=== PATIENT | male | born 1995 | race African-American/Black ===

== ENCOUNTER 2017-08-23 09:37 | Emergency (ER) | payer OTHER, MEDICAID | END 2017-08-23 10:11 | disposition home or self-care (01) | LOC: M ED 09:37 | DX: L25.0 Unspecified contact dermatitis due to cosmetics (principal); R56.9 Unspecified convulsions; F33.9 Major depressive disorder, recurrent, unspecified; Z86.14 Personal history of Methicillin resistant Staphylococcus aureus infection | CPT/HCPCS: 99282 ==

== ENCOUNTER 2017-11-17 04:08 | Observation (INO) | payer OTHER ==
[2017-11-17] MEDS ORDERED: LORazepam 2 MG/ML VIAL (J2060) As Ordered (04:41)
[2017-11-17] MEDS: LORazepam 2 MG/ML VIAL (J2060) IV (04:47)
[2017-11-17 05:03] LABS: BASO % 0.4 % (0.0-1.0); EOS % 0.5 % (0.0-3.0); HEMATOCRIT 48.8 % (42.0-52.0); HEMOGLOBIN 16.6 g/dl (13.5-17.5); IMMATURE GRANULOCYTE % 0.4 % (0-3.0); LYMPH # 2.2 10^3/uL (1.5-6.5); LYMPH % 39.1 % (24.0-44.0); MEAN CORPUSCULAR HEMOGLOBIN 29.9 pg (27.0-33.0); MEAN CORPUSCULAR VOLUME 87.9 fl (80.0-96.0); MONO # 0.4 10^3/uL (0.0-0.8); MONO % 6.8 % (0.0-5.0); NEUTROPHILS # 2.9 10^3/uL (1.8-7.7); NEUTROPHILS % 52.8 % (36.0-66.0); PLATELET COUNT, AUTOMATED 303 10^3/uL (150-450); RED BLOOD COUNT 5.55 10^6/uL (4.30-6.10); RED CELL DISTRIBUTION WIDTH 13.1 % (11.5-14.5); WHITE BLOOD COUNT 5.6 10^3/uL (4.0-10.0)
[2017-11-17 05:21] LABS: ALBUMIN 4.6 GM/DL (3.2-5.2); ALBUMIN/GLOBULIN RATIO 1.15 (1.00-1.93); ALKALINE PHOSPHATASE 70 U/L (45-117); ALT/SGPT 57 U/L (12-78); ANION GAP 13 MEQ/L (8-16); AST/SGOT 26 U/L (7-37); BILIRUBIN,DIRECT < 0.1 MG/DL (0.0-0.2); BILIRUBIN,TOTAL 0.3 MG/DL (0.2-1.0); BLOOD UREA NITROGEN 7 MG/DL (7-18); CALCIUM LEVEL 9.6 MG/DL (8.5-10.1); CARBON DIOXIDE LEVEL 23 MEQ/L (21-32); CHLORIDE LEVEL 106 MEQ/L (98-107); CREATININE FOR GFR 0.95 MG/DL (0.70-1.30); ETHYL ALCOHOL (ETHANOL) 0.145 % (0.000-0.010); GLOMERULAR FILTRATION RATE > 60.0 (>60); GLUCOSE, FASTING 89 MG/DL (70-100); MAGNESIUM LEVEL 2.1 MG/DL (1.8-2.4); POTASSIUM SERUM 3.7 MEQ/L (3.5-5.1); SODIUM LEVEL 142 MEQ/L (136-145); TOTAL PROTEIN 8.6 GM/DL (6.4-8.2)
[2017-11-17 06:07] LABS: KETONE, URINE AUTO RFX NEGATIVE (NEGATIVE); MUCUS, URINE RFX SMALL (NEGATIVE); NITRITE, URINE AUTO RFX NEGATIVE (NEGATIVE); RBC, URINE AUTO RFX 2 /HPF (0-3); SPECIFIC GRAVITY UR AUTO RFX 1.013 (1.002-1.035); SQUAM EPITHELIAL CELL UR AURFX 0 /HPF (0-6); WBC, URINE AUTO RFX 5 /HPF (0-3)
[2017-11-17 06:14] LABS: LEUKOCYTE ESTERASE UR AUTO RFX TRACE (NEGATIVE)
[2017-11-17 06:15] LABS: AMPHETAMINES LEVEL URINE NEGATIVE (NEGATIVE); BARBITURATES URINE NEGATIVE (NEGATIVE); BENZODIAZEPINES URINE NEGATIVE (NEGATIVE); CANNABINOIDS URINE NEGATIVE (NEGATIVE); COCAINE METABOLITE URINE NEGATIVE (NEGATIVE); METHADONE URINE NEGATIVE (NEGATIVE); OPIATES URINE NEGATIVE (NEGATIVE); PHENCYCLIDINE URINE NEGATIVE (NEGATIVE)
[2017-11-17] MEDS: NS 1,000 ML IV ×2 (06:30→10:22)
[2017-11-17] MEDS: levETIRAcetam INJection 1,000 MG in D5W 100 ML IV (08:13)
[2017-11-17] MEDS ORDERED: D5W/0.45% SODIUM CHLORIDE 1,000 ML IV (09:44)
[2017-11-17] MEDS ORDERED: ONDANSETRON 4MG/2ML VIAL (J2405) IV (09:45)
[2017-11-17] MEDS ORDERED: ACETAMINOPHEN TAB 650MG DOSE (2X325MG) PO (09:45)
[2017-11-17] MEDS ORDERED: LORazepam 2 MG/ML VIAL (J2060) IV (10:00)
[2017-11-17] MEDS: D5W/0.45% SODIUM CHLORIDE 1,000 ML IV (11:33)
[2017-11-17] MEDS: NICOTINE POLACRILEX 2 MG GUM PO (16:23)
[2017-11-17] MEDS: HEPARIN SOD (PORCINE) 5000 UNITS/ML VIAL SC ×2 (16:28→20:41)
[2017-11-17] MEDS: NICOTINE 7 MG/24 HR TRANSDERMAL TD (16:30)
[2017-11-17] MEDS: levETIRAcetam 250MG TABLET (KEPPRA) PO (20:41)
[2017-11-18 11:01] LABS: PROLACTIN 13.9 NG/ML (2.1-17.7)
[2017-11-20 10:17] LABS: LEVETIRACETAM (KEPPRA) None Detected ug/mL (10.0-40.0)
== END 2017-11-17 22:30 | disposition left against medical advice (07) ==
LOC: M ED 04:08 → M ED INP 09:44 → M MS5PR 13:35
DX: Z53.21 Procedure and treatment not carried out due to patient leaving prior to being seen by health care provider (principal); R56.9 Unspecified convulsions; F10.10 Alcohol abuse, uncomplicated; F17.210 Nicotine dependence, cigarettes, uncomplicated; F64.8 Other gender identity disorders; Z79.899 Other long term (current) drug therapy; F40.01 Agoraphobia with panic disorder; F32.9 Major depressive disorder, single episode, unspecified
CPT/HCPCS: J1953

== ENCOUNTER 2018-02-21 01:52 | Emergency (ER) | payer OTHER ==
[2018-02-21] MEDS: CHARCOAL ACTIVATED LIQUID 25 GM/120 ML BTL PO (02:15)
[2018-02-21 02:28] LABS: BASO % 0.3 % (0.0-1.0); EOS % 0.5 % (0.0-3.0); HEMATOCRIT 47.2 % (42.0-52.0); HEMOGLOBIN 16.2 g/dl (13.5-17.5); IMMATURE GRANULOCYTE % 0.3 % (0-3.0); LYMPH # 3.5 10^3/uL (1.5-6.5); LYMPH % 44.7 % (24.0-44.0); MEAN CORPUSCULAR HEMOGLOBIN 30.8 pg (27.0-33.0); MEAN CORPUSCULAR HGB CONC 34.3 g/dl (32.0-36.5); MEAN CORPUSCULAR VOLUME 89.7 fl (80.0-96.0); MONO # 0.4 10^3/uL (0.0-0.8); MONO % 5.4 % (0.0-5.0); NEUTROPHILS # 3.8 10^3/uL (1.8-7.7); NEUTROPHILS % 48.8 % (36.0-66.0); PLATELET COUNT, AUTOMATED 332 10^3/uL (150-450); RED BLOOD COUNT 5.26 10^6/uL (4.30-6.10); RED CELL DISTRIBUTION WIDTH 12.6 % (11.5-14.5); WHITE BLOOD COUNT 7.8 10^3/uL (4.0-10.0)
[2018-02-21 02:53] LABS: ALBUMIN 4.3 GM/DL (3.2-5.2); ALBUMIN/GLOBULIN RATIO 1.26 (1.00-1.93); ALKALINE PHOSPHATASE 76 U/L (45-117); ALT/SGPT 48 U/L (12-78); ANION GAP 9 MEQ/L (8-16); AST/SGOT 16 U/L (7-37); BILIRUBIN,DIRECT < 0.1 MG/DL (0.0-0.2); BILIRUBIN,TOTAL 0.2 MG/DL (0.2-1.0); BLOOD UREA NITROGEN 6 MG/DL (7-18); CALCIUM LEVEL 8.9 MG/DL (8.5-10.1); CARBON DIOXIDE LEVEL 28 MEQ/L (21-32); CHLORIDE LEVEL 105 MEQ/L (98-107); CPK CREATINE PHOSPHOKINASE 483 U/L (39-308); CREATININE FOR GFR 1.02 MG/DL (0.70-1.30); ETHYL ALCOHOL (ETHANOL) 0.178 % (0.000-0.010); GLOMERULAR FILTRATION RATE > 60.0 (>60); GLUCOSE, FASTING 111 MG/DL (70-100); POTASSIUM SERUM 3.4 MEQ/L (3.5-5.1); SALICYLATE LEVEL 1.8 MG/DL (5.0-30.0); SODIUM LEVEL 142 MEQ/L (136-145); TOTAL PROTEIN 7.7 GM/DL (6.4-8.2)
[2018-02-21 02:54] LABS: ACETAMINOPHEN LEVEL < 2.0 UG/ML (10.0-30.0)
[2018-02-21 04:06] LABS: AMPHETAMINES LEVEL URINE NEGATIVE (NEGATIVE); BARBITURATES URINE NEGATIVE (NEGATIVE); BENZODIAZEPINES URINE NEGATIVE (NEGATIVE); CANNABINOIDS URINE NEGATIVE (NEGATIVE); COCAINE METABOLITE URINE NEGATIVE (NEGATIVE); METHADONE URINE NEGATIVE (NEGATIVE); OPIATES URINE NEGATIVE (NEGATIVE); PHENCYCLIDINE URINE NEGATIVE (NEGATIVE)
[2018-02-21] MEDS: ONDANSETRON 4 MG ORAL DISINTEGRATING TAB (Q0162 PER 1MG) PO (07:00)
== END 2018-02-21 10:36 | disposition home or self-care (01) ==
LOC: M ED 01:52
DX: F10.129 Alcohol abuse with intoxication, unspecified (principal); F91.9 Conduct disorder, unspecified; Z79.899 Other long term (current) drug therapy
CPT/HCPCS: Q0162

== ENCOUNTER 2018-03-10 23:56 | Emergency (ER) | payer OTHER ==
[2018-03-11] MEDS ORDERED: ACETAMINOPHEN 325 MG TAB As Ordered (01:14)
[2018-03-11] MEDS: levETIRAcetam 250MG TABLET (KEPPRA) PO (01:17)
[2018-03-11 01:19] LABS: ANION GAP 7 MEQ/L (8-16); BLOOD UREA NITROGEN 11 MG/DL (7-18); CALCIUM LEVEL 9.1 MG/DL (8.5-10.1); CARBON DIOXIDE LEVEL 27 MEQ/L (21-32); CHLORIDE LEVEL 106 MEQ/L (98-107); CREATININE FOR GFR 1.07 MG/DL (0.70-1.30); ETHYL ALCOHOL (ETHANOL) < 0.003 % (0.000-0.010); GLOMERULAR FILTRATION RATE > 60.0 (>60); GLUCOSE, FASTING 98 MG/DL (70-100); POTASSIUM SERUM 4.5 MEQ/L (3.5-5.1); SODIUM LEVEL 140 MEQ/L (136-145)
[2018-03-11 01:22] LABS: LACTIC ACID SEPSIS PROTOCOL 1.3 MMOL/L (0.4-2.0)
[2018-03-11] MEDS: ACETAMINOPHEN 325 MG TAB PO (01:22)
== END 2018-03-11 02:16 | disposition home or self-care (01) ==
LOC: M ED 23:56
DX: G40.909 Epilepsy, unspecified, not intractable, without status epilepticus (principal); Z79.899 Other long term (current) drug therapy
CPT/HCPCS: 80320

== ENCOUNTER 2018-06-15 07:44 | Emergency (ER) | payer OTHER ==
[2018-06-15] MEDS: levETIRAcetam 250MG TABLET (KEPPRA) PO (09:07)
[2018-06-15] MEDS: ACETAMINOPHEN TAB 650MG DOSE (2X325MG) PO (09:07)
== END 2018-06-15 09:50 | disposition home or self-care (01) ==
LOC: M ED 07:44
DX: R41.0 Disorientation, unspecified (principal); G40.909 Epilepsy, unspecified, not intractable, without status epilepticus; Z91.19 Patient's noncompliance with other medical treatment and regimen; F10.10 Alcohol abuse, uncomplicated
CPT/HCPCS: 70450

== ENCOUNTER 2018-10-28 13:32 | Emergency (ER) | payer OTHER ==
[~2018-10-28] VITALS: Ht 172.7 cm; Wt 100.0 kg
[~2018-10-28 13:32] MED LIST: DEPA1TAB3 PO; KEFL500C17 PO; KEPP1TAB2 PO; NICO21PAT TD; SERT-141 PO; TRAZO50TA PO; ZONE1CAP PO
[2018-10-28] MEDS ORDERED: ESTR0.5T3 PO (13:43)
[2018-10-28] MEDS ORDERED: SPIR100T3 PO (13:43)
[2018-10-28] MEDS ORDERED: NS 1,000 ML IV ONE (14:00)
--- NOTE | 2018-10-28 14:16 | REP ---
CHEST, SINGLE VIEW: There is no evidence of acute infiltrate. No pleural effusion is seen. The heart is normal in size. The mediastinal silhouette is unremarkable. The visualized osseous structures are intact. IMPRESSION: No acute pulmonary disease. Electronically Signed by Viraj Quintero MD 10/28/2018 03:31 P
[2018-10-28 14:43] LABS: BASO % 0.4 % (0.0-1.0); EOS % 0.6 % (0.0-3.0); HEMATOCRIT 44.6 % (42.0-52.0); HEMOGLOBIN 15.4 g/dl (13.5-17.5); LYMPH # 1.5 10^3/uL (1.5-6.5); LYMPH % 32.3 % (24.0-44.0); MEAN CORPUSCULAR HEMOGLOBIN 30.9 pg (27.0-33.0); MEAN CORPUSCULAR HGB CONC 34.5 g/dl (32.0-36.5); MEAN CORPUSCULAR VOLUME 89.4 fl (80.0-96.0); MONO # 0.4 10^3/uL (0.0-0.8); MONO % 9.3 % (0.0-5.0); NEUTROPHILS # 2.7 10^3/uL (1.8-7.7); NEUTROPHILS % 57.2 % (36.0-66.0); PLATELET COUNT, AUTOMATED 287 10^3/uL (150-450); RED BLOOD COUNT 4.99 10^6/uL (4.30-6.10); WHITE BLOOD COUNT 4.7 10^3/uL (4.0-10.0)
[2018-10-28 14:49] LABS: INFLUENZA A AMPLIFICATION NEGATIVE (NEGATIVE); INFLUENZA B AMPLIFICATION NEGATIVE (NEGATIVE)
--- NOTE | 2018-10-28 14:55 | REP ---
CT Head without contrast HISTORY: Seizure COMPARISON: 06/15/2018 There is no intraparenchymal hemorrhage, acute infarct, mass or midline shift. The ventricular system is normal in appearance. There is no extra cerebral collection. There is no fracture. The visualized sinuses are clear. IMPRESSION: There is no intracranial lesion. Electronically Signed by Yang Fisher MD 10/28/2018 02:46 P
[2018-10-28 15:26] LABS: ACETAMINOPHEN LEVEL < 2.0 UG/ML (10.0-30.0); ALBUMIN 3.9 GM/DL (3.2-5.2); ALT/SGPT 49 U/L (12-78); BILIRUBIN,DIRECT 0.2 MG/DL (0.0-0.2); BILIRUBIN,TOTAL 0.7 MG/DL (0.2-1.0); BLOOD UREA NITROGEN 10 MG/DL (7-18); CALCIUM LEVEL 9.2 MG/DL (8.5-10.1); CARBON DIOXIDE LEVEL 29 MEQ/L (21-32); CHLORIDE LEVEL 103 MEQ/L (98-107); CPK CREATINE PHOSPHOKINASE 334 U/L (39-308); CREATININE FOR GFR 0.93 MG/DL (0.70-1.30); ETHYL ALCOHOL (ETHANOL) < 0.003 % (0.000-0.010); GLOMERULAR FILTRATION RATE > 60.0 (>60); GLUCOSE, FASTING 92 MG/DL (70-100); MB/CK RELATIVE INDEX 0.36 (< OR =4); SALICYLATE LEVEL < 1.7 MG/DL (5.0-30.0); SODIUM LEVEL 138 MEQ/L (136-145); TOTAL PROTEIN 7.3 GM/DL (6.4-8.2); TROPONIN I < 0.02 NG/ML (< 0.10)
[2018-10-28 15:33] LABS: OSMOLALITY SERUM 292 MOSM/KG (275-295)
[2018-10-28 15:48] LABS: AMPHETAMINES LEVEL URINE NEGATIVE (NEGATIVE); BARBITURATES URINE NEGATIVE (NEGATIVE); BENZODIAZEPINES URINE NEGATIVE (NEGATIVE); CANNABINOIDS URINE NEGATIVE (NEGATIVE); COCAINE METABOLITE URINE NEGATIVE (NEGATIVE); METHADONE URINE NEGATIVE (NEGATIVE); OPIATES URINE NEGATIVE (NEGATIVE); PHENCYCLIDINE URINE NEGATIVE (NEGATIVE)
[2018-10-28] MEDS ORDERED: KEPP10002 PO (16:40)
[2018-10-28] MEDS ORDERED: levETIRAcetam 250MG TABLET (KEPPRA) PO ONE (16:45)
[2018-10-28] MEDS ORDERED: levETIRAcetam **XR** 500 MG TABLET PO ONE (16:45)
[2018-10-28 17:10] VITALS: BP 129/56
--- NOTE | 2018-10-28 22:11 | ECGEPIP ---
Stationary ECG Study [facility] - ED Test Date: 2018-10-28 Pat Name: NORMA LARRY Department: Room: - Gender: M Portrait Artist: JMerline : 1995 Requested By: BELEN Amaya Order Number: [id number] Reading MD: Amrik Silva Measurements Intervals [place] Rate: 69 P: 37 OR: 159 QRS: 23 QRSD: 98 T: 20 QT: 370 QTc: 398 Interpretive Statements SINUS RHYTHM WITH MARKED SINUS ARRHYTHMIA NSTTW ABNORMALITIES SIMILAR TO 02/21/18 Electronically Signed On 10-28-2018 22:11:00 EDT by Amrik Silva
== END 2018-10-28 17:15 | disposition home or self-care (01) ==
LOC: EDSEX 13:32 → M ED 13:32 → EDBD 13:32 → M ED 17:15
DX: G40.909 Epilepsy, unspecified, not intractable, without status epilepticus (principal); R94.31 Abnormal electrocardiogram [ECG] [EKG]; F17.200 Nicotine dependence, unspecified, uncomplicated; Z79.890 Hormone replacement therapy; Z79.899 Other long term (current) drug therapy
CPT/HCPCS: 70450; 71045; 80048; 80076; 80180; 80307; 81001; 82140; 82550; 82553; 83605; 83930; 84443; 85025; 87502; 93005; 93041; 94760; 96360; 96361; 99285; G0480

== ENCOUNTER 2019-06-23 16:14 | Emergency (ER) | payer OTHER ==
[~2019-06-23] VITALS: Ht 175.3 cm; Wt 97.4 kg
[~2019-06-23 16:14] MED LIST changes: +ESTR0.5T3 PO; +KEPP10002 PO; +SPIR100T3 PO; +TRAZ1TAB10 PO; -TRAZO50TA PO
[2019-06-23] MEDS ORDERED: SPIR100T3 PO (16:33)
[2019-06-23] MEDS ORDERED: NS 1,000 ML IV ONE (16:45)
[2019-06-23] MEDS ORDERED: levETIRAcetam INJection 1,000 MG in D5W 100 ML IV ONE (17:00)
[2019-06-23 17:28] LABS: BLOOD UREA NITROGEN 10 MG/DL (7-18); CALCIUM LEVEL 8.9 MG/DL (8.5-10.1); CARBON DIOXIDE LEVEL 27 MEQ/L (21-32); CHLORIDE LEVEL 108 MEQ/L (98-107); CREATININE FOR GFR 0.85 MG/DL (0.70-1.30); GLOMERULAR FILTRATION RATE > 60.0 (>60); GLUCOSE, FASTING 116 MG/DL (70-100); SODIUM LEVEL 139 MEQ/L (136-145)
[2019-06-23] MEDS: levETIRAcetam INJection 500 MG in D5W MINI-BAG PLUS 100 ML IV SCH (17:45)
[2019-06-23] MEDS ORDERED: levETIRAcetam INJection 750 MG in D5W 100 ML IV ONE (18:00)
[2019-06-23 18:33] VITALS: BP 129/56
== END 2019-06-23 18:34 | disposition home or self-care (01) ==
LOC: EDSEX 16:14 → EDBD 16:14 → M ED 16:14
DX: G40.909 Epilepsy, unspecified, not intractable, without status epilepticus (principal); Z91.14 Patient's other noncompliance with medication regimen; Z79.899 Other long term (current) drug therapy
CPT/HCPCS: 80048; 96365; 99284; J1953

== ENCOUNTER 2019-10-06 01:08 | Emergency (ER) | payer OTHER ==
[~2019-10-06] VITALS: Ht 175.3 cm; Wt 93.2 kg
[2019-10-06] MEDS ORDERED: BUPIVACAINE LIPOSOME/PF 1.3% 20ML VIAL (13.3MG/ML)(EXPAREL)(C9290 PER1MG) INFIL ONE (05:00)
[2019-10-06] MEDS ORDERED: AUGM500T34 PO (06:25)
[2019-10-06] MEDS ORDERED: FLAG500T PO (06:25)
[2019-10-06 06:40] VITALS: BP 121/89
== END 2019-10-06 06:46 | disposition home or self-care (01) ==
LOC: M ED 01:08
DX: K08.89 Other specified disorders of teeth and supporting structures (principal); R56.9 Unspecified convulsions; Z79.899 Other long term (current) drug therapy
CPT/HCPCS: 64400; 99283; C9290

== ENCOUNTER → 2019-10-28 | Outpatient (REF) | payer OTHER ==
[~2019-10-28] MED LIST changes: +AUGM500T34 PO; +FLAG500T PO
[2019-10-28 21:32] LABS: APPEARANCE, URINE CLEAR (CLEAR); BACTERIA, URINE AUTO NEGATIVE (NEGATIVE); BILIRUBIN, URINE AUTO NEGATIVE (NEGATIVE); BLOOD, URINE BLOOD NEGATIVE (NEGATIVE); COLOR, URINE YELLOW (YELLOW); GLUCOSE, URINE (UA) AUTO NEGATIVE (NEGATIVE); KETONE, URINE AUTO TRACE mg/dL (NEGATIVE); LEUKOCYTE ESTERASE, URINE AUTO TRACE (NEGATIVE); MUCUS, URINE SMALL (NEGATIVE); NITRITE, URINE AUTO NEGATIVE (NEGATIVE); PROTEIN, URINE AUTO NEGATIVE (NEGATIVE); RBC, URINE AUTO 0 /HPF (0-3); SPECIFIC GRAVITY URINE AUTO 1.014 (1.002-1.035); SQUAMOUS EPITHELIAL CELL UR AU 0 /HPF (0-6); UROBILINOGEN, URINE AUTO 0.2 mg/dL (0.0-2.0); WBC, URINE AUTO 1 /HPF (0-3)
[2019-10-28 23:08] LABS: CHLAMYDIA DNA AMPLIFICATION NEGATIVE (NEGATIVE); GC DNA AMPLIFICATION NEGATIVE (NEGATIVE)
== END ==
LOC: M LAB REF 21:15
PROVIDERS: ATTEND Physician Assistant
DX: N39.0 Urinary tract infection, site not specified (principal); Z20.2 Contact with and (suspected) exposure to infections with a predominantly sexual mode of transmission

== ENCOUNTER → 2020-03-09 | Outpatient (REF) | payer OTHER, MEDICAID ==
[2020-04-19 11:56] LABS: CHLAMYDIA DNA AMPLIFICATION NEGATIVE (NEGATIVE); GC DNA AMPLIFICATION NEGATIVE (NEGATIVE)
[2020-04-23 12:04] LABS: HIV 1&2 SCREEN CENTAUR NEGATIVE (NEGATIVE)
== END ==
LOC: M LAB REF 14:58
PROVIDERS: ATTEND Nurse Practitioner Family
DX: Z11.3 Encounter for screening for infections with a predominantly sexual mode of transmission (principal)

== ENCOUNTER → 2020-11-03 | Outpatient (REF) | payer OTHER, MEDICAID ==
[2020-11-03 14:13] LABS: ALBUMIN 4.2 GM/DL (3.2-5.2); ALT/SGPT 38 U/L (12-78); BILIRUBIN,TOTAL 0.3 MG/DL (0.2-1.0); BLOOD UREA NITROGEN 13 MG/DL (7-18); CALCIUM LEVEL 9.7 MG/DL (8.5-10.1); CARBON DIOXIDE LEVEL 26 MEQ/L (21-32); CHLORIDE LEVEL 106 MEQ/L (98-107); CHOLESTEROL LEVEL 193 MG/DL (<200); CHOLESTEROL RISK RATIO 2.757 (<5); CREATININE FOR GFR 0.67 MG/DL (0.70-1.30); GLOMERULAR FILTRATION RATE > 60.0 (>60); GLUCOSE, FASTING 98 MG/DL (70-100); HDL CHOLESTEROL 70 MG/DL (>40); LDL CHOLESTEROL 108 MG/DL (<100); NON-HDL-C 123 MG/DL; SODIUM LEVEL 139 MEQ/L (136-145); TESTOSTERONE 483 NG/DL (241-827); TOTAL PROTEIN 7.8 GM/DL (6.4-8.2); TRIGLYCERIDES LEVEL 73 MG/DL (<150)
[2020-11-03 14:51] LABS: HEPATITIS C VIRUS ABY INDEX < 0.0 INDEX (<0.8)
[2020-11-03 14:52] LABS: HIV 1&2 SCREEN CENTAUR NEGATIVE (NEGATIVE)
== END ==
LOC: M LAB REF 11:57
PROVIDERS: ATTEND Family Medicine Addiction Medicine
DX: Z00.01 Encounter for general adult medical examination with abnormal findings (principal)

== ENCOUNTER → 2024-07-09 | Outpatient (REF) | payer OTHER, MEDICAID ==
[2024-07-10 10:22] LABS: BASO % 0.4 % (0.0-1.0); EOS % 0.1 % (0.0-3.0); HEMATOCRIT 38.7 % (42.0-52.0); LYMPH # 1.4 10^3/uL (1.5-5.0); LYMPH % 19.5 % (24.0-44.0); MEAN CORPUSCULAR HEMOGLOBIN 30.1 pg (27.0-33.0); MEAN CORPUSCULAR HGB CONC 33.6 g/dl (32.0-36.5); MEAN CORPUSCULAR VOLUME 89.6 fl (80.0-96.0); MONO # 0.4 10^3/uL (0.0-0.8); MONO % 5.5 % (2.0-8.0); NEUTROPHILS # 5.4 10^3/uL (1.5-8.5); NEUTROPHILS % 74.1 % (36.0-66.0); PLATELET COUNT, AUTOMATED 399 10^3/uL (150-450); RED BLOOD COUNT 4.32 10^6/uL (4.30-6.10); WHITE BLOOD COUNT 7.2 10^3/uL (4.0-10.0)
[2024-07-10 10:25] LABS: ALBUMIN 3.8 G/DL (3.2-5.2); ALKALINE PHOSPHATASE 57 U/L (40-129); ALT/SGPT 24 U/L (7.0-40); AST/SGOT 15 U/L (<34); BILIRUBIN,TOTAL 0.3 MG/DL (0.3-1.2); BLOOD UREA NITROGEN 7 MG/DL (9-23); CARBON DIOXIDE LEVEL 29 MMOL/L (20-31); CHLORIDE LEVEL 105 MMOL/L (98-107); CHOLESTEROL LEVEL 179 MG/DL (<200); CHOLESTEROL RISK RATIO 2.99 (<5); CREATININE FOR GFR 0.66 MG/DL (0.70-1.30); GLOMERULAR FILTRATION RATE > 60.0 (>60); GLUCOSE, FASTING 107 MG/DL (60-100); HDL CHOLESTEROL 59.8 MG/DL (>40); LDL CHOLESTEROL 105.6 MG/DL (<100); NON-HDL-C 119.2 MG/DL; POTASSIUM SERUM 4.4 MMOL/L (3.5-5.1); SODIUM LEVEL 140 MMOL/L (136-145); TRIGLYCERIDES LEVEL 68 MG/DL (<150)
[2024-07-10 10:29] LABS: THYROID STIMULATING HORMONE 1.291 uIU/ML (0.55-4.78)
[2024-07-10 11:31] LABS: HEMOGLOBIN A1c 5.6 % (4.0-6.0)
== END ==
LOC: M LAB REF 09:43
PROVIDERS: ATTEND Nurse Practitioner Family
DX: E66.9 Obesity, unspecified (principal)

== ENCOUNTER 2025-04-05 21:52 | Emergency (ER) | payer OTHER, SELFPAY ==
[~2025-04-05] VITALS: Ht 172.7 cm; Wt 109.8 kg
[2025-04-06] MEDS ORDERED: AMOX875T2 PO (01:53)
[2025-04-06] MEDS: AMPICILLIN SOD/SULBACTAM SOD 3 GM in DEXTROSE 5% (D5W) MINI-BAG PLU 100 ML IV ONE (02:03)
[2025-04-06] MEDS: KETOROLAC 30 MG/ML 1 ML VIAL IV ONE ×2 (02:03→04:14)
[2025-04-06 04:10] VITALS: BP 139/88; TEMP 96.8; O2SAT 100
== END 2025-04-06 04:15 | disposition home or self-care (01) ==
LOC: M ED 21:52
DX: K04.7 Periapical abscess without sinus (principal); G40.909 Epilepsy, unspecified, not intractable, without status epilepticus; Z79.2 Long term (current) use of antibiotics; Z79.899 Other long term (current) drug therapy
CPT/HCPCS: 96365; 96375; 96376; 99284; J0295; J1100; J1885